=== PATIENT | male | born 1995 | race African-American/Black ===

== ENCOUNTER → 2021-10-01 | Outpatient (CLI) | payer OTHER ==
--- NOTE | 2021-10-01 16:24 | DIREP ---
PROCEDURE:XRAY SINUSES PARANASAL<3 VWS COMPARISON:None. INDICATIONS:Z00.00 HISTORY AND PHYSICAL EVALUATION TECHNIQUE: Multiple views of the sinuses are provided. FINDINGS: MAXILLARY:Normal. No mucosal thickening or fluid level. ETHMOID:Normal. No mucosal thickening or fluid level. FRONTAL:Normal. No mucosal thickening or fluid level. SPHENOID:Normal. No mucosal thickening or fluid level. OTHER:Negative. CONCLUSION:Normal examination. Dictated by: Alexey Roth M.D. on 10/01/2021 at 04:22 PM
== END | disposition home or self-care (01) ==
LOC: RAD 15:33
PROVIDERS: ATTEND Nurse Practitioner
DX: Z00.00 Encounter for general adult medical examination without abnormal findings (principal)
CPT/HCPCS: 70220